=== PATIENT | male | born 1945 | race Caucasian/White ===

== ENCOUNTER 2017-12-19 08:36 | Inpatient (IN) | payer OTHER ==
[2017-11-25 14:05] VITALS: BMI 33.0
--- NOTE | 2017-11-25 14:36 | PAT Medication Instructions ---
Service Date Nov 25, 2017. Current Home Medication List Aspirin (Aspirin Ec), 81 MG PO QAM Atenolol (Tenormin), 25 MG PO QPM Atorvastatin (Lipitor), 40 MG PO QPM Ibuprofen (Ibuprofen), 600 MG PO PRN Lisinopril (Zestril), 10 MG PO QAM Ranitidine (Zantac), 150 MG PO BID PRN for PRN [Folic Acid], 800 MCG PO QAM [Vitamin D3], 1 TAB PO QAM Medication Instructions For Your Scheduled Surgery - Hold the following medications 10 days prior to surgery per your surgeon's instructions: Ibuprofen (Ibuprofen), 600 MG PO PRN - Hold the following medications the morning of surgery: Lisinopril (Zestril), 10 MG PO QAM [Folic Acid], 800 MCG PO QAM [Vitamin D3], 1 TAB PO QAM - Take the following medications the morning of surgery with a sip of water: Aspirin (Aspirin Ec), 81 MG PO QAM Ranitidine (Zantac), 150 MG PO BID PRN for PRN (if needed) - Take the following medications as scheduled the night before surgery: Atenolol (Tenormin), 25 MG PO QPM Atorvastatin (Lipitor), 40 MG PO QPM Ranitidine (Zantac), 150 MG PO BID PRN for PRN (if needed) If you have any questions please call us at [phone] or [phone] or [phone]
[2017-11-25 15:38] LABS: BASO % 0.6 %; BASO ABS # 0.04 K/uL (0-0.2); EOS % 8.2 %; EOS ABS # 0.52 K/uL (0-0.5); HEMATOCRIT 46.7 % (42-52); IG# 0.01 K/uL (0.00-0.02); LYMPH % 27.2 %; LYMPH ABS # 1.72 K/uL (1.2-3.4); MEAN CELL VOLUME 92.8 fL (80-100); MEAN CORPUSCULAR HEMOGLOBIN 31.8 pg (25-34); MEAN CORPUSCULAR HGB CONC 34.3 g/dl (32-36); MONO % 14.7 %; MONO ABS # 0.93 K/uL (0.11-0.59); NEUT % 49.1 %; NEUT ABS # 3.11 K/uL (1.4-6.5); PLATELET COUNT 215 K/uL (130-400); RED CELL DISTRIBUTION WIDTH CV 13.3 % (11.5-14.5); RED CELL DISTRIBUTION WIDTH SD 45.3 fL (36.4-46.3); WHITE BLOOD COUNT 6.33 K/uL (4.8-10.8)
[2017-11-25 15:53] LABS: CALCIUM 9.5 mg/dl (8.5-10.1); CREATININE 1.02 mg/dl (0.60-1.40); POTASSIUM 4.5 mmol/L (3.5-5.1)
[2017-11-25 15:57] LABS: PTT PATIENT 24.1 SECONDS (21.0-31.0)
--- NOTE | 2017-11-25 16:16 | DIAGNOSTIC IMAGING REPORT ---
TWO VIEW CHEST CLINICAL HISTORY: Preoperative examination. FINDINGS: PA and lateral chest radiographs are obtained. No prior studies are available for comparison at the time of dictation. The heart is top normal for projection. There is atherosclerotic calcification of the thoracic aorta. The pulmonary vasculature is noncongested. Nonspecific interstitial thickening is likely chronic. No airspace consolidation or pleural effusion is identified. A calcified granuloma is seen in the left upper lobe. There is no pneumothorax. The skeletal structures are osteopenic. The bony thorax appears intact. Degenerative change is seen throughout the thoracic spine. IMPRESSION: No active disease in the chest. Electronically signed by: Zhou Denney M.D. 11/25/2017 4:15 PM Dictated Date/Time: 11/25/2017 4:14 PM
--- NOTE | 2017-12-12 09:04 | HISTORY & PHYSICAL EXAMINATION ---
DATE OF ADMISSION: 12/19/2017 CHIEF COMPLAINT: Left knee pain. HISTORY OF PRESENT ILLNESS: The patient is a 72-year-old male who presents for treatment of his left knee. He has got a long history of bilateral knee pain and discomfort, left side greater than right. He has been treated at the [place]. He had multiple injections which have become less successful over time. It is really starting to affect to affect his quality of life. He cannot walk any significant distance. He has got chronic pain. The more he walks, the more it hurts. He has nighttime pain. He also feels unstable. He would like to have his left knee fixed. PAST MEDICAL HISTORY: 1. Hypertension. 2. Elevated cholesterol. 3. Mild obesity with a BMI of 33. 4. Skin cancer. PAST SURGICAL HISTORY: Include right rotator cuff repair done by myself. ALLERGIES: None. CURRENT MEDICINES: 1. Atenolol 25 mg. 2. Lisinopril 10 mg a day. 3. Atorvastatin 40 mg. 4. Folic acid 800 mcg a day. 5. Vitamin D3 125 mcg a day. 6. Baby Aspirin 81 mg a day. 7. Ranitidine 150 mg twice a day. SOCIAL HISTORY: This is a 72-year-old male. He is from [place]. One drink per month. Does not smoke. He is . FAMILY HISTORY: Significant for diabetes. REVIEW OF SYSTEMS: Negative for diabetes, neurologic problems, vascular problems, bleeding disorders. Denies any chest pain. No shortness of breath. No history of DVT or PE. PHYSICAL EXAMINATION: GENERAL: Physical exam shows a healthy, pleasant, middle-aged male. Looks to be in pretty good health. HEENT EXAMINATION: Benign. NECK: Supple. No lymphadenopathy. LUNGS: Clear to auscultation. HEART: Regular rate and rhythm. ABDOMEN: Soft, nontender, nondistended. EXTREMITIES: Grossly neurovascularly intact except as follows: Examination of the left knee reveals the patient walks with a varus alignment to his knee. He does have a varus thrust with weightbearing. He has got bony hypertrophy medially. Small knee effusion. Range of motion 5-120. No instability. X-RAYS: X-ray of the left knee reviewed. It shows advanced left knee DJD. He has got complete loss of his medial joint space. He has got subchondral sclerosis. Osteophytes of the medial femoral condyle and medial tibial plateau. ASSESSMENT: This is a 72-year-old male with advanced bilateral knee degenerative joint disease, left side more symptomatic than the right. He failed conservative treatment and would like to have his left knee replaced. PLAN: We will take him to the operating room and do a left total knee replacement. The risks and benefits of this procedure were explained to the patient that include but not limited to DVT, PE, , infection, neurological injury, vascular injury, bleeding problem, pain, limited range of motion, stiffness, failure to relieve symptoms, incomplete relief of symptoms, need for surgery in the future, persistent pain, etc. The patient understands and desires to proceed. Informed consent was obtained. We did talk to him about holding his lisinopril the morning of surgery and make sure he takes his metoprolol. As far as discharge plans, he is going to see how he comes along, but he is considering going to [place] depending on how he does and insurance coverage.
[~2017-12-19] VITALS: Ht 170.2 cm; Wt 95.9 kg
[2017-12-19] VITALS (8 sets, daily range): BP systolic 106–154; BP diastolic 69–94; PULSE 65–90; TEMP 36.5–37.1; O2SAT 92–98; Ht 170.2 cm; Wt 95.9 kg
[2017-12-19] MEDS: TRANEXAMIC ACID INJ 1,000 MG x 2 Bags IV SCH ×4 (06:00→06:30)
[~2017-12-19 08:36] MED LIST: ACETAMINOPHEN 500 MG TAB PO SCH; ASPI81TA28 PO; ATEN-173 PO; ATOR-24 PO; BUPIVACAINE 0.5 % 5 MG/1 ML PF 10ML VIAL ONE; BUPIVACAINE LIPOSOME 266 MG, BUPIVACAINE/EPINEPHRINE INJ 50 ML, SODIUM CHLORIDE 0.9% PF... INFIL SCH; CEFAZOLIN 2000MG IV PUSH 15 ML IV SCH; FAMOTIDINE 20 MG TAB PO SCH; FOLIC ACID PO; GABAPENTIN 300 MG CAP PO SCH; IBUP1CAP9 PO; LACTATED RINGER'S 1000ML 1,000 ML IV SCH; LACTATED RINGER'S 1000ML 500 ML IV SCH; LACTATED RINGER'S 1000ML IV SCH; LISI-461 PO; METOCLOPRAMIDE HCL 10 MG TAB PO SCH; RANI150T85 PO; ROPIVACAINE 0.5% 5 MG/ML 30 ML VIAL ONE; VITAMIN D3 PO
[2017-12-19] MEDS ORDERED: ACET-1693 PO (09:01)
--- NOTE | 2017-12-19 09:14 | History & Physical Bridge Note ---
H&P Re-Evaluation Bridge Note: I have examined the patient, reviewed the History & Physical and in the interval since the performance of the History & Physical I have noted the following changes of clinical significance: No changes noted
[2017-12-19] MEDS ORDERED: ATROPINE SULFATE 0.1 MG/ML 5ML SYR IV PRN (09:45)
[2017-12-19] MEDS ORDERED: EpHEDrine SULFATE INJ 50 MG/ML AMP IV PRN (09:45)
[2017-12-19] MEDS ORDERED: MIDAZOLAM HCL 1 MG/ML 2ML VIAL ONE (09:52)
[2017-12-19] MEDS ORDERED: EpHEDrine SULFATE 50MG/5ML SYR ONE (11:17)
[2017-12-19] MEDS ORDERED: BUPIVACAINE 0.25% 30 ML VIAL ONE (11:27)
[2017-12-19] MEDS ORDERED: EpINEphrine INJ 1MG/ML AMP 1 MG/ML AMP ONE (11:27)
[2017-12-19] MEDS ORDERED: BUPIVACAINE LIPOSOME 1/3% 266 MG/20 ML VIAL ONE (11:28)
[2017-12-19] MEDS ORDERED: BACITRACIN 50000 UNIT VIAL ONE (11:28)
[2017-12-19] MEDS ORDERED: SODIUM CHLORIDE 0.9% PF 50 ML VIAL ONE (11:28)
[2017-12-19] MEDS ORDERED: DEXAMETHASONE SOD INJ 4 MG/ML VIAL ONE (12:01)
[2017-12-19] MEDS ORDERED: PROPOFOL IV EMULSION 10 MG/ML 20 ML VIAL ONE (12:01)
[2017-12-19] MEDS ORDERED: ONDANSETRON INJ 2 MG/ML 2 ML VIAL ONE (12:01)
[2017-12-19] MEDS ORDERED: PHENYLEPHRINE HCL INJ 10 MG/ML VIAL ONE (12:06)
--- NOTE | 2017-12-19 13:18 | [facility] Post Operative Brief Note ---
Immediate Operative Summary Operative Date December 19, 2017. Pre-Operative Diagnosis Left Knee Advanced Degenerative Joint Disease Post-Operative Diagnosis Left Knee Advanced Degenerative Joint Disease Procedure(s) Performed Left Total Knee Arthroplasty Surgeon Dr. Flores Process Mechanic Surgeon(s) ELLE Barnhart Estimated Blood Loss 50 ml Findings Consistent with Post-Op Diagnosis Fluids (cc crystalloids) 1500 cc Specimens A. Left Knee Bone and Tissue Drains None Anesthesia Type MAC Spinal Regional Complication(s) none Disposition Accompanied Pt To Recover: no Disposition: Recovery Room / PACU
[2017-12-19] MEDS ORDERED: OXYCODONE HCL IR 5 MG TAB (IMMEDIATE RELEASE) PO PRN (13:30)
[2017-12-19] MEDS ORDERED: RANITIDINE HCL 150 MG TAB PO PRN (13:30)
[2017-12-19] MEDS ORDERED: MAGNESIUM HYDROXIDE SUSP 30 ML UDC PO PRN (13:30)
[2017-12-19] MEDS ORDERED: BISACODYL 10 MG SUPP PR PRN (13:30)
[2017-12-19] MEDS ORDERED: SOD PHOSPHATE/SOD BIPHOSPHATE ENEMA 132 ML BTL PR PRN (13:30)
[2017-12-19] MEDS ORDERED: ZOLPIDEM TARTRATE 5 MG TAB PO PRN (13:30)
[2017-12-19] MEDS ORDERED: HYDROmorphone INJ 0.5 MG/0.5 ML SYR IV PRN (13:30)
[2017-12-19] MEDS ORDERED: METOCLOPRAMIDE HCL INJ 5 MG/ML 2 ML VIAL IV PRN (13:30)
[2017-12-19] MEDS ORDERED: ONDANSETRON INJ 2 MG/ML 2 ML VIAL IV PRN (13:30)
[2017-12-19] MEDS ORDERED: ALUMINUM/MAGNESIUM/SIMETH (MAALOX MAX) 30 ML UDC PO PRN (13:30)
[2017-12-19] MEDS ORDERED: TAMSULOSIN HCL 0.4 MG CAP PO PRN (13:30)
[2017-12-19] MEDS ORDERED: SILVER SULFADIAZINE 1% CR 50 GM JAR EXT PRN (13:30)
--- NOTE | 2017-12-19 13:47 | DIAGNOSTIC IMAGING REPORT ---
L KNEE 1 OR 2 VIEWS ROUTINE CLINICAL HISTORY: AP/LATERAL IN PACU LEFT KNEE COMPARISON: None. DISCUSSION: Anatomic post total left knee arthroplasty. Good contact between prosthetic and underlying bone. Expected soft tissue postoperative change. IMPRESSION: Anatomic alignment posttotal left knee arthroplasty. The above report was generated using voice recognition software. It may contain grammatical, syntax or spelling errors. Electronically signed by: Juan Carlos Steiner M.D. 12/19/2017 1:46 PM Dictated Date/Time: 12/19/2017 1:45 PM
--- NOTE | 2017-12-19 13:59 | Anesthesiology Progress Note ---
Anesthesia Post Op Note Date & Time December 19, 2017 at 13:59 Vital Signs Pain Intensity: 0 Vital Signs Past 12 Hours Date Time Temp Pulse Resp B/P (MAP) Pulse Ox O2 Delivery O2 Flow Rate FiO2 12/19/17 13:58 36.4 12/19/17 13:55 116/70 12/19/17 13:54 79 23 99 12/19/17 13:54 79 23 12/19/17 13:50 111/70 12/19/17 13:49 81 20 12/19/17 13:49 80 20 98 12/19/17 13:45 109/70 12/19/17 13:44 81 21 99 12/19/17 13:44 82 21 12/19/17 13:40 110/70 12/19/17 13:39 80 19 99 12/19/17 13:39 80 19 12/19/17 13:35 110/72 12/19/17 13:34 81 18 99 12/19/17 13:34 82 18 12/19/17 13:31 122/76 12/19/17 13:29 79 22 99 12/19/17 13:29 79 22 12/19/17 13:26 90/62 12/19/17 13:24 82 22 96/61 98 12/19/17 13:24 83 22 12/19/17 13:24 36.1 84 14 96/61 98 Nasal Cannula 3 12/19/17 09:06 37.1 65 18 154/94 95 Room Air Notes Mental Status: alert / awake / arousable, participated in evaluation Pt Amnestic to Procedure: Yes Nausea / Vomiting: adequately controlled Pain: adequately controlled Airway Patency, RR, SpO2: stable & adequate BP & HR: stable & adequate Hydration State: stable & adequate Neuraxial Anesthesia: was administered, sensory block is resolving Anesthetic Complications: no major complications apparent
[2017-12-19] MEDS: D5W AND 1/2NSS + 20MEQ KCL 1,000 ML IV SCH ×2 (15:21→22:43)
[2017-12-19] MEDS: KETOROLAC TROMETHAMINE 15 MG/ML VIAL IV. SCH ×2 (15:21→21:29)
--- NOTE | 2017-12-19 15:28 | OPERATIVE REPORT ---
DATE OF OPERATION: 12/19/2017 SURGEON: Jersey Flores MD DEVELOPMENT PROFESSIONAL: ELLE Contreras PREOPERATIVE DIAGNOSIS: Left knee degenerative joint disease. POSTOPERATIVE DIAGNOSIS: Same. PROCEDURE PERFORMED: Left cemented posterior stabilized total knee arthroplasty. COMPLICATIONS: None. ESTIMATED BLOOD LOSS: 50 mL. FLUID REPLACEMENT: 1500 mL crystalloid fluid replacement. ANESTHESIA: Spinal with adductor canal block. DRAINS: None. SPECIMENS: Left knee sent for pathology. OPERATIVE INDICATIONS: The patient is a 72-year-old gentleman who is known to me from a previous rotator cuff repair. He has got a fairly long history of left knee pain and discomfort that has become less responsive to conservative treatment over time. X-rays show advanced left knee DJD. Pain was really affecting his quality of life and he elected to proceed with total knee arthroplasty. OPERATIVE FINDINGS: Operative findings revealed advanced left knee DJD. He had grade 4 [id number] disease extensively in the medial compartment. He had grade 3 changes diffusely in the patellofemoral compartment and the lateral compartment was quite well preserved. OPERATIVE IMPLANTS: Operative implants consisted of: 1. Biomet Vanguard size 67.5 left posterior bifemoral component. 2. Biomet size 71 tibial tray. 3. A 10 mm posterior stabilized polyethylene insert. 4. A 31 x 8 all-poly patella. OPERATIVE PROCEDURE: The patient was taken to the operating room, identified and placed on the operating table in supine position. All contact areas were appropriately padded. IV antibiotics were provided by anesthesia team. A spinal anesthetic and adductor canal block had been provided in the holding area. Gregory catheter was placed in sterile fashion. A left thigh tourniquet was then placed and left lower extremity was then prepped and draped in usual sterile fashion. Left leg was elevated examined with Esmarch and tourniquet was placed at 300 mmHg. An anterior approach to the left knee was then performed through a longitudinal incision centered over the patella. Sharp dissection was carried through subcutaneous tissues down to the level of the extensor mechanism. A medial parapatellar arthrotomy incision was made. Some subperiosteal dissection was carried out medially. The fat pad resecting from beneath the patellar tendon. Lateral patellofemoral ligament was released. Patella was everted and the knee was flexed. The osteophytes were taken off the distal femur. The ACL and PCL were then released from the distal femur. The tibia subluxated anteriorly. The external tibial alignment jig was then placed. The anterior face of the tibia and adjusted 16 mm medially. Proximal tibial cut was made to remove about a millimeter of bone from the most deficient aspect of the posteromedial tibial plateau. Some osteophytes were taken off medial and posteromedially. Tibia size was size 71. Attention was then drawn to the femur. The distal femur was entered with a sharp drill bit. Intramedullary canal was suctioned. A left 6-degree valgus cutting guide was placed. Distal femoral cutting block was pinned in place. Distal femoral cut was made to take an additional 3 mm of bone off the distal femur. Femur was then sized to a size 67.5. We sent downsize this just slightly. The AP cutting block was pinned parallel to the epicondylar axis, which was 4 degrees of external rotation. The anterior cut, anterior chamfer, posterior cut, posterior chamfer cuts were made. Box cutting guide was placed and adjusted slight lateral and the box cut was made. The knee was flexed. The remnants of the medial and lateral menisci were excised. The osteophytes were taken off the posterior aspect of the femur. Trial femoral component was placed. Tibial tray was pinned in maximum external rotation and drill and stem punch were used to create defect in proximal tibia for the tibial tray. The knee was then trialed and the 10 mm insert fit most appropriately. Attention was then drawn to the patella. The patella was cleaned of all soft tissues. Patella thickness measured 20 mm in thickness was cut down to 13. It was sized to a size 31 patella. Lug holes were drilled for 31 patella. Lateral osteophyte was removed. Patella button was placed. Knee was taken through range of motion and patella tracked nicely with no thumbs test. Attention was then drawn toward placement of permanent components. All trial components were removed. Bone plug was placed in the distal femur to limit blood loss. A double batch of Palacos G cement was mixed. A left size 67.5 posterior stabilized femoral component, size 71 tibial tray, 10 mm posterior stabilized polyethylene insert, and a 31 x 8 all-poly patella then cemented in place. Knee was brought out into full extension until cement hardened. A final cement check was then performed. Pericapsular tissues were injected with a total of 100 mL of combination of 20 mL of Exparel, 30 mL of normal saline, 50 mL of 0.25% Marcaine with epinephrine. The patient did receive 1 gram of tranexamic acid. The tourniquet was then let down for final tourniquet time of 56 minutes. Hemostasis was assured with use of electrocautery. The extensor mechanism was then closed with a combination of #1 PDS suture and #1 Vicryl suture in a [id number] fashion. Extensor mechanism was checked and found to be intact. The subcutaneous tissue then closed with #2 Dexon suture in a buried interrupted fashion. Skin was closed skin kye. Leg was then cleaned and dried and a sterile dressing of Xeroform, 4 x 4's, sterile cast padding, and an Baldemar bandage. The patient was then transferred to the recovery room in stable condition. The patient tolerated the procedure well with no complication. Needle and sponge counts were correct at the end of the operation. I attest to the content of the Intraoperative Record and any orders documented therein. Any exception s are noted below.
[2017-12-19] MEDS: FERROUS GLUCONATE 324 MG TAB PO SCH (17:29)
[2017-12-19] MEDS ORDERED: TRANEXAMIC ACID INJ 1,000 MG in SODIUM CHLORIDE 0.9% 100ML 100 ML IV SCH (18:00)
[2017-12-19] MEDS ORDERED: PNEUMOCOCCAL ADMINISTRATION CHARGE ONE (20:00)
[2017-12-19] MEDS ORDERED: PNEUMOCOCCAL POLYSACCHARIDES 25 MCG/0.5 ML VIAL/SYR IM. ONE (20:00)
[2017-12-19] MEDS: TAPENTADOL ER 50 MG TABCR PO SCH (20:30)
[2017-12-19] MEDS: CEFAZOLIN IV 2,000 MG in SYRINGE 0 ML IV SCH (20:30)
[2017-12-19] MEDS: SENNA 8.6 MG TAB PO SCH (20:31)
[2017-12-19] MEDS: ATORVASTATIN 40 MG TAB PO SCH (20:31)
[2017-12-19] MEDS: DOCUSATE SODIUM 100 MG CAP PO SCH (20:31)
[2017-12-19] MEDS: ASPIRIN 81 MG ECTAB PO SCH (20:31)
[2017-12-19] MEDS: ACETAMINOPHEN 500 MG TAB PO SCH (21:30)
[2017-12-20 03:24] VITALS: BP 128/74; PULSE 70; TEMP 36.4; O2SAT 96
[2017-12-20] MEDS: KETOROLAC TROMETHAMINE 15 MG/ML VIAL IV. SCH ×4 (03:57→21:40)
[2017-12-20] MEDS: CEFAZOLIN IV 2,000 MG in SYRINGE 0 ML IV SCH (03:57)
[2017-12-20] MEDS: D5W AND 1/2NSS + 20MEQ KCL 1,000 ML IV SCH (05:29)
[2017-12-20] MEDS: ACETAMINOPHEN 500 MG TAB PO SCH ×3 (05:29→21:40)
[2017-12-20 06:29] LABS: HEMATOCRIT 39.5 % (42-52); HEMOGLOBIN 13.4 g/dL (14.0-18.0); MEAN CELL VOLUME 92.7 fL (80-100); MEAN CORPUSCULAR HEMOGLOBIN 31.5 pg (25-34); MEAN CORPUSCULAR HGB CONC 33.9 g/dl (32-36); MEAN PLATELET VOLUME 10.3 fL (7.4-10.4); PLATELET COUNT 190 K/uL (130-400); RED CELL DISTRIBUTION WIDTH CV 13.4 % (11.5-14.5); RED CELL DISTRIBUTION WIDTH SD 45.3 fL (36.4-46.3); WHITE BLOOD COUNT 13.58 K/uL (4.8-10.8)
[2017-12-20 07:06] LABS: CALCIUM 8.4 mg/dl (8.5-10.1); CREATININE 1.09 mg/dl (0.60-1.40); POTASSIUM 4.5 mmol/L (3.5-5.1)
--- NOTE | 2017-12-20 07:55 | PROGRESS NOTE ---
DATE: 12/20/2017 SUBJECTIVE: A 72-year-old gentleman postop day 1 from a left knee replacement. He is doing well. Really not having much pain. No chest pain or shortness of breath. Not feeling dizzy or lightheaded. OBJECTIVE: VITAL SIGNS: Temperature 36.4. Vital signs stable. GENERAL: Physical examination reveals a healthy, pleasant, middle-aged male. He is sitting up in bed, looks comfortable. LUNGS: Clear to auscultation. HEART: Has a regular rate and rhythm. ABDOMEN: Soft, nontender, nondistended. EXTREMITIES: Grossly neurovascularly intact except as follows: Examination of the left lower extremity reveals the dressing to be clean, dry, and intact. He can dorsiflex and plantarflex his foot appropriately. He is neurologically intact. He has got brisk refill. LABORATORY DATA: Hemoglobin 13.4. Hematocrit 39.5. White cell count 13.58. Electrolytes are stable. ASSESSMENT: A 72-year-old gentleman postop day 1 from left knee replacement, doing well. Pain is controlled. He is neurologically intact. White count is elevated, likely related to stress. PLAN: 1. DVT prophylaxis including thigh-high TEDs, SCDs, and aspirin twice a day. 2. PT/OT. Weight bear as tolerated. Left total knee protocol. 3. Pain control, doing well with current pain regimen. 4. Disposition: Plan to discharge to home with some home health once adequately recovered.
[2017-12-20 08:00] VITALS: BP 160/79; PULSE 73; TEMP 36.5; O2SAT 97
[2017-12-20] MEDS: FERROUS GLUCONATE 324 MG TAB PO SCH ×3 (08:34→17:42)
[2017-12-20] MEDS: DOCUSATE SODIUM 100 MG CAP PO SCH ×2 (08:35→20:38)
[2017-12-20] MEDS: FoLIC ACID TAB 400 MCG TAB PO SCH (08:36)
[2017-12-20] MEDS: ASPIRIN 81 MG ECTAB PO SCH ×2 (08:36→20:38)
[2017-12-20] MEDS: MULTIVITAMIN TAB PO SCH (08:36)
[2017-12-20] MEDS: PANTOprazole SOD 40 MG TAB PO SCH (08:37)
[2017-12-20] MEDS: TAPENTADOL ER 50 MG TABCR PO SCH ×2 (08:37→20:38)
[2017-12-20] MEDS: CHOLECALCIFEROL 1000 INTER.UNIT TAB PO SCH (08:37)
[2017-12-20] MEDS: LISINOPRIL 10 MG TAB PO SCH (08:38)
[2017-12-20 15:18] VITALS: BP 115/76; PULSE 72; TEMP 36.7; O2SAT 97
[2017-12-20] MEDS: SENNA 8.6 MG TAB PO SCH (21:40)
[2017-12-20] MEDS: ATORVASTATIN 40 MG TAB PO SCH (21:40)
[2017-12-20 22:50] VITALS: BP 122/72; PULSE 83; TEMP 36.8; O2SAT 97
[2017-12-21] MEDS: KETOROLAC TROMETHAMINE 15 MG/ML VIAL IV. SCH ×2 (03:55→09:48)
[2017-12-21] MEDS: ACETAMINOPHEN 500 MG TAB PO SCH (05:36)
[2017-12-21 06:52] VITALS: BP 120/70; PULSE 81; TEMP 36.7; O2SAT 94
[2017-12-21] MEDS ORDERED: ASPI-320 PO (07:40)
[2017-12-21] MEDS ORDERED: ACET-24 PO (07:40)
[2017-12-21] MEDS ORDERED: RXC5 PO (07:40)
--- NOTE | 2017-12-21 07:41 | Discharge Instructions ---
Discharge Instructions Date of Service December 21, 2017. Admission Reason for Admission: Left Knee Degenerative Joint Disease Discharge Discharge Diagnosis / Problem: Left Knee Replacement Discharge Goals Goal(s): Decrease discomfort, Improve function, Increase independence, Improve disease control, Therapeutic intervention Activity Recommendations Activity Limitations: per Instructions/Follow-up section Weightbearing Status: Left weightbearing . Instructions / Follow-Up Instructions / Follow-Up ACTIVITY RECOMMENDATIONS: Physical Therapy: * You will go to physical therapy three times each week for four to six weeks after your surgery in order to regain your knee range of motion and to retrain your knee to work properly. * It is just as important to make sure you are getting your knee perfectly straight as it is to regain your knee bend. * Taking a pain pill an hour before therapy can help you have a more productive and comfortable therapy session. Home Exercise: * You were shown a series of exercises (heel props, heel slides, etc.) in the hospital. Do these exercises three to four times each day including the exercises you were shown in physical therapy. Walking: * Get up and walk several times each day. For the first four weeks, try not to stand or walk for more than one hour at a time. If you do stand or walk for more than one hour, you will not hurt anything, but your knee and leg will likely swell. * As you feel comfortable, you may change from the walker or crutches to a cane and then to independent walking. MEDICATIONS: New Medicine: * You will likely be taking one or more of these medications: 1. Oxycodone - A quick and shorter-acting pain medication. Take one to two tablets every four to six hours to lessen your pain. 2. Aspirin - Thins your blood to lessen the chance of forming a blood clot. * The most common side effects of pain medicine and iron are nausea and constipation. If nausea or constipation is too much of a problem or if you have any questions about your new medicines or doses, call [facility] at . We will try to help you manage these issues. VERY IMPORTANT TO READ AND REVIEW" Pain: * The immediate post-operative period after knee replacement surgery is often quite painful. * You are given a prescription for pain medicine. You should take it, as directed, when you need it, especially before physical therapy and before going to bed. Pain that interferes with sleep is very common and can last several months. * You will likely need pain medicine for the first four to six weeks. It will not stop all of the pain. The pain will lessen and as you feel better, you may change to milder pain medicine such as Tylenol. * The most common side effects of pain medicine are nausea and constipation, so don't take more than you need. SPECIAL CARE INSTRUCTIONS: TEDs/Elastic Stockings: * The white elastic stockings help limit swelling and prevent blood clots from forming in your legs. The more you wear them, the more they work. * Wear them for six weeks after knee replacement surgery and four weeks after partial knee replacement. Prevention of Infection: * Take antibiotics one hour before any dental cleaning, dental work, urological procedure, gastrointestinal procedure or any invasive surgery in order to prevent your new joint from getting infected. * You may get the antibiotics from the doctor performing the procedure or you may call our office at before and we will call in a prescription to the pharmacy of your choice. Things to Watch For: * Drainage from the incision site that occurs more than one week after your surgery. * Severely increased knee/leg pain or swelling. * Increased redness at the incision site. * Fever above 102 degrees Fahrenheit. * Unusual chest pain or shortness of breath. * Unusual pain or burning with urination. Call [facility] at with any of the above problems or if you have any questions about your medicines or recovery. FOLLOW UP VISIT: Make an appointment to see your doctor for approximately two weeks after surgery for a progress check and staple removal by calling the office at . Current Hospital Diet Patient's current hospital diet: Regular Diet Discharge Diet Recommended Diet: Regular Diet Procedures Procedures Performed: Left Total Knee Arthroplasty Pending Studies Studies pending at discharge: no Medical Emergencies . Who to Call and When: Medical Emergencies: If at any time you feel your situation is an emergency, please call [phone] immediately. . Non-Emergent Contact Non-Emergency issues call your: Surgeon . "Provider Documentation" section prepared by Jersey Flores. .
[2017-12-21] MEDS: FERROUS GLUCONATE 324 MG TAB PO SCH (08:20)
[2017-12-21] MEDS: FoLIC ACID TAB 400 MCG TAB PO SCH (08:35)
[2017-12-21] MEDS: DOCUSATE SODIUM 100 MG CAP PO SCH (08:35)
--- NOTE | 2017-12-21 08:35 | PROGRESS NOTE ---
DATE: 12/21/2017 SUBJECTIVE: This is a 72-year-old gentleman, postop day 2 from a left knee replacement. He is doing pretty well. A little more pain this morning. Had pretty good therapy yesterday and painful afterwards. No chest pain or shortness of breath. Not feeling dizzy or lightheaded. OBJECTIVE: VITAL SIGNS: Temperature 36.7. Vital signs stable. PHYSICAL EXAMINATION: GENERAL: Physical examination shows a 72-year-old gentleman. He is sitting up in his bedside chair and looking pretty comfortable. EXTREMITIES: Examination of the left leg reveals the incision to be clean, dry, and intact. No significant drainage. Some moderate swelling. Calf is soft and supple. He can dorsiflex and plantarflex his foot appropriately. ASSESSMENT: This is a 72-year-old female, postop day 2 from a left knee replacement, doing reasonably well. A little bit more painful, but not unexpected. PLAN: 1. DVT prophylaxis including thigh-high TEDs, SCDs, and aspirin twice a day. 2. PT/OT. Weightbear as tolerated. Left total knee protocol. 3. Pain control, doing well with the current pain regimen. 4. Disposition: Plan to discharge to home with some home health later today.
[2017-12-21] MEDS: PANTOprazole SOD 40 MG TAB PO SCH (08:36)
[2017-12-21] MEDS: CHOLECALCIFEROL 1000 INTER.UNIT TAB PO SCH (08:36)
[2017-12-21] MEDS: MULTIVITAMIN TAB PO SCH (08:36)
[2017-12-21] MEDS: LISINOPRIL 10 MG TAB PO SCH (08:37)
[2017-12-21] MEDS: TAPENTADOL ER 50 MG TABCR PO SCH (08:39)
[2017-12-21] MEDS: ASPIRIN 81 MG ECTAB PO SCH (09:47)
[2017-12-21 10:07] VITALS: BP 120/70; PULSE 81; TEMP 36.7; O2SAT 94
--- NOTE | 2017-12-23 15:40 | DISCHARGE SUMMARY ---
ADMITTING PHYSICIAN AND SURGEON: Dr. Flores. ADMITTING DIAGNOSIS: Left knee degenerative joint disease. SURGERY PERFORMED: Left total knee arthroplasty. SECONDARY DIAGNOSES: Hypertension, elevated cholesterol, mild obesity, skin cancer. CONSULTS: None obtained. HISTORY AND PHYSICAL EXAMINATION: Well documented in the patient's chart. HOSPITAL COURSE: The patient has been on 12/19/2017 underwent total knee arthroplasty, tolerated the procedure well with no complications. He was transferred to the PACU postoperatively and later to the orthopedic for further care. He was given Ancef for antibiotic prophylaxis, SAMY stockings, SCDs and aspirin for DVT prophylaxis. Hemoglobin, hematocrit and vital signs were monitored during his hospital stay and remained stable. He did not require any blood transfusions. There were no complications. By postoperative day 2, he was tolerating regular diet, pain was controlled with oral pain medicine. He was participating in physical therapy. On postop day 2, he was discharged home, set up with home health services, given printed discharge instructions including new prescriptions for extra strength Tylenol, aspirin and oxycodone. Continue his home medications with the exception of his home dose of Tylenol and aspirin which were changed. Continue physical therapy, weightbearing as tolerated, SAMY stockings. Follow up 10-12 days or sooner if there are any problems or concerns.
== END 2017-12-21 11:35 | disposition home health service (06) | DRG 470 ==
LOC: C.ACU 08:36 → C.3E 10:30 → ENRESERV 13:49
PROVIDERS: ADMIT Orthopaedic Surgery Sports Medicine; ATTEND Orthopaedic Surgery Sports Medicine
PROC: 0SRD0J9 Replacement of Left Knee Joint with Synthetic Substitute, Cemented, Open Approach (ICD-10-PCS; principal; 2017-12-19 11:00)
DX: M17.0 Bilateral primary osteoarthritis of knee (principal); I10 Essential (primary) hypertension; E78.00 Pure hypercholesterolemia, unspecified; E66.9 Obesity, unspecified; Z79.899 Other long term (current) drug therapy; Z79.82 Long term (current) use of aspirin; Z68.33 Body mass index [BMI] 33.0-33.9, adult; Z85.828 Personal history of other malignant neoplasm of skin